=== PATIENT | female | born 1970 | race Caucasian/White ===

== ENCOUNTER 2018-01-12 16:48 | Emergency (ER) | payer MEDICARE, SELFPAY ==
[2018-01-12 16:52] VITALS: BP 134/96; PULSE 94; RESP 18; TEMP 36.9; O2SAT 96
[2018-01-12 17:11] LABS: Bilirubin Negative (Negative); Blood Negative (Negative); Clarity Clear; Glucose Negative (Negative); Ketones Trace mg/dL (Negative); Leukocyte Esterase Small (Negative); Nitrite Negative (Negative); Specific Gravity 1.025 (1.005-1.025); Urobilinogen 0.2 EU/dL (Up TO 0.2)
[2018-01-12 17:17] LABS: Epithelial Cells Rare HPF (Negative); Other Cells Negative (Negative); RBC Negative (0-2)
[2018-01-12 17:18] LABS: Bacteria Few HPF (Negative); C & S Indicated? No; Casts Negative LPF (Negative); Crystals Negative HPF (Negative); Mucus Trace (Negative)
--- NOTE | 2018-01-12 17:18 | W.ED.GENAD ---
Discharge Plan Disposition Patient Disposition: HOME Condition: Stable Discharge Details Chief Complaint: Urinary Clinical Impression: UTI (urinary tract infection) Primary Care Provider: Lalo Schmidt ED Provider: Iftikhar Tatum Home Meds and New Rx's Prescriptions: New ciprofloxacin HCl 500 mg tablet 500 mg PO BID Qty: 14 RF: 0 phenazopyridine [AZO Standard Maximum Strength] 97.5 mg tablet 97.5 mg PO TID PRN (Reason: dysuria) Qty: 10 RF: 0 Continue acetaminophen-codeine 1 EACH tablet 1 tab-cap PO DAILY PRN RF: 0 ibuprofen 600 MG tablet 600 mg PO TID Qty: 270 RF: 4 duloxetine [Cymbalta] 30 MG capsule,delayed release(DR/EC) 20 mg PO BID Qty: 90 RF: 4 sumatriptan succinate [Imitrex] 50 MG tablet 50 mg PO PRN DICKINSON RF: 0 melatonin-pyridoxine HCl (B6) 1 EACH tablet 1 ea PO HS PRNRF: 0 cyclobenzaprine 10 MG tablet 10 mg PO BID RF: 0 gabapentin 100 MG capsule 100 mg PO PRN RF: 0 metronidazole 500 MG tablet 500 mg PO BID Qty: 14 RF: 0 clindamycin phosphate 2 % cream 1 appful VG DAILY Qty: 40 RF: 0 Discharge Instructions Instructions: Urinary Tract Infection in Women (ED) Discharge Data Discharge Physician: Iftikhar Tatum Medical Decision Making 47 yo female comes in with burning on urination and right lower back pain since Sunday. Denies fevers, abdominal pain or vomit. She states she thinks she has a uti so came here today. Has no cva tenderness on exam and no abdominal tenderness. Symptoms seem consistent with uti, will obtain ua. Ua positive for leukocytes and has bacteria. Given symptoms will start abx for uti and advised f/u with pcp or here if not improving Differential Diagnosis uti, vaginitis, pyelo HPI General Mode of arrival: ambulatory. Date/Time Provider Initiated Documentation: 01/12/18 16:49. Limitations to Documentation: no limitations. Information obtained by: patient. History of Present Illness 47 year old F presents to the emergency department with the chief complaint of dysuria, described as moderate, with intensity rated at 4. Quality is described as burning, Patient reports no radiation. Patient started experiencing this day(s) (3) and it has been constant. No relieving factors improve symptom(s), No exacerbating factors reported . Patient notes no other symptoms.. Patient did receive the following treatments prior to arrival, none Related Data Home Medications Medication Instructions Recorded Confirmed acetaminophen-codeine 1 tab-cap PO DAILY PRN tab-cap 04/30/13 01/12/18 duloxetine [Cymbalta] 20 mg PO BID #90 tab-cap 04/30/13 01/12/18 ibuprofen 600 mg PO TID #270 tab-cap 04/30/13 01/12/18 sumatriptan succinate [Imitrex] 50 mg PO PRN DICKINSON tab-cap 06/23/13 01/12/18 melatonin-pyridoxine HCl (B6) 1 ea PO HS PRN 08/05/14 01/12/18 cyclobenzaprine 10 mg PO BID tab-cap 03/01/16 01/12/18 gabapentin 100 mg PO PRN 10/02/17 01/12/18 metronidazole 500 mg PO BID #14 tab-cap 10/02/17 clindamycin 2 % vaginal cream 1 appful VG DAILY #40 gm 12/20/17 01/12/18 ciprofloxacin HCl 500 mg PO BID #14 tab 01/12/18 phenazopyridine [AZO Standard 97.5 mg PO TID PRN #10 tab 01/12/18 Maximum Strength] Previous Rx's Medication Instructions Recorded metronidazole 500 mg PO BID #14 tab-cap 10/02/17 clindamycin 2 % vaginal cream 1 appful VG DAILY #40 gm 12/20/17 ciprofloxacin HCl 500 mg PO BID #14 tab 01/12/18 phenazopyridine [AZO Standard 97.5 mg PO TID PRN #10 tab 01/12/18 Maximum Strength] Allergies Allergy/AdvReac Type Severity Reaction Status Date / Time No Known Allergies Allergy Unverified 01/12/18 17:06 General Stated Complaint: Urinary JAVY: 3 Review of Systems Review of Systems All systems reviewed & are unremarkable except as noted in HPI and below Constitutional Denies chills, Denies fever(s) and Denies weakness Eyes Denies loss of vision ENT Denies change in voice Cardiovascular Denies chest pain and Denies dyspnea Respiratory Denies dyspnea Gastrointestinal Denies abdominal pain, Denies nausea and Denies vomiting Musculoskeletal Denies joint swelling Integumentary/Breasts Denies rash Neurologic Denies loss of vision and Denies weakness Psychiatric Denies depression Endocrine Denies cold intolerance and Denies heat intolerance Allergic/Immunologic Denies urticaria PFSH Family History Mother Neoplasm Father Essential hypertension Sister No problems noted. Brother Essential hypertension Hyperlipidemia Grandfather No problems noted. Grandfather No problems noted. Grandmother No problems noted. Grandmother Neoplasm Cerebrovascular accident Sister No problems noted. FAMILY HISTORY Diabetes Essential hypertension Son No problems noted. Daughter No problems noted. Social History current occupational status: disabled pets and animals: Yes pets and animals: dog(s) Smoking/Tobacco Use Status: Current every day second hand exposure: No alcohol intake: never substance use type: does not use special kerrie needs: No Surgical History EPIDURAL KNEE REPAIR Ligation of fallopian tube Exam Const General: no acute distress Orientation: alert HENMT Head: normal to inspection Ears: external ears normal General nose exam: external nose normal Mouth: moist mucous membranes Eyes General: appearance normal, both eyes and all related structures Neck Neck: normal visual inspection Resp Effort & Inspection: normal respiratory effort and able to speak in complete sentences Cardio Rate: regular rate Skin General skin exam: no rashes or lesions noted Neuro General: alert and oriented x3 Extrem General: normal to inspection Psych Mental Status: mental status grossly normal Course Vital Signs Temperature 36.9 C 01/12/18 16:52 Pulse 94 H 01/12/18 16:52 Respiratory Rate 18 01/12/18 16:52 Blood Pressure 134/96 H 01/12/18 16:52 Pulse Oximetry 96 01/12/18 16:52 Temperature 36.9 C 01/12/18 16:52 Temperature Source Skin 01/12/18 16:52 Pulse 94 H 01/12/18 16:52 Respiratory Rate 18 01/12/18 16:52 Respiratory Effort 01/12/18 16:54 Blood Pressure 134/96 H 01/12/18 16:52 Blood Pressure Position Sitting 01/12/18 16:52 Pulse Oximetry 96 01/12/18 16:52 Pain Level 5 01/12/18 16:52 Lab/Test Results Lab/Test Results: Laboratory Tests Range/Units 01/12/18 17:00 Urine Color (Yellow) Yellow Urine Clarity Clear Urine pH (5-8) 6.0 Ur Specific [place] (1.005-1.025) 1.025 Urine Protein (Negative) mg/dL Negative Urine Ketones (Negative) mg/dL Trace H Urine Blood (Negative) Negative Urine Nitrite (Negative) Negative Urine Bilirubin (Negative) Negative Urine Urobilinogen (Up TO 0.2) EU/dL 0.2 Ur Leukocyte Esterase (Negative) Small H Urine Glucose (Negative) mg/dL Negative POC- Test(urine) Negative
[2018-01-12] MEDS: Ciprofloxacin 500 MG TAB PO (18:25)
[2018-01-12] MEDS: Ibuprofen 600 MG TAB PO (18:25)
[2018-01-12] MEDS: Phenazopyridine 200 MG TAB PO (18:25)
== END 2018-01-12 18:30 | disposition home or self-care (01) ==
PROVIDERS: Emergency Provider Emergency Medicine; PCP Family Medicine
DX: N39.0 Urinary tract infection, site not specified (principal)
CPT/HCPCS: 81025; 99283; 81003; 81015; 87086

== ENCOUNTER 2018-03-01 14:06 | Outpatient (REF) | payer MEDICARE, SELFPAY | END 2018-03-01 14:26 | LOC: LBN 14:06 | PROVIDERS: PCP Family Medicine; Visit Provider Nurse Practitioner Family | DX: N30.90 Cystitis, unspecified without hematuria (principal) | CPT/HCPCS: 87086 ==

== ENCOUNTER 2018-08-27 21:45 | Outpatient (REF) | payer MEDICARE, SELFPAY | END 2018-08-27 22:05 | LOC: LBN 21:45 | PROVIDERS: PCP Family Medicine | DX: N89.8 Other specified noninflammatory disorders of vagina (principal) | CPT/HCPCS: 87480; 87510; 87660 ==

== ENCOUNTER 2018-10-23 13:18 | Outpatient (REF) | payer MEDICARE, SELFPAY | END 2018-10-23 13:38 | LOC: LBN 13:18 | PROVIDERS: PCP Family Medicine; Visit Provider Family Medicine | DX: N94.9 Unspecified condition associated with female genital organs and menstrual cycle (principal) | CPT/HCPCS: 87480; 87510; 87660 ==

== ENCOUNTER 2018-11-13 00:58 | Outpatient (CLI) | payer MEDICARE, SELFPAY ==
--- NOTE | 2018-11-13 13:45 | DI.MAMMO_ITS ---
SYMPTOMS/DIAGNOSIS: SCREENING, Z12.31 MAMMOGRAM: Mammograms were interpreted according to the usual protocol including computer analysis with CAD system, tomosynthesis and C view imaging. The breasts are of moderate density with fairly symmetrical distribution of fibroglandular tissue. No dominant mass or clumped microcalcification identified in either breast. Current examination is compared with the previous examination of September 2016 and there has been no gross interval change in appearance in comparison with the previous study. CONCLUSION: No specific evidence of malignancy at this time. Routine screening examinations are suggested at yearly intervals in this age group according to the ACS/ACR guidelines. Category 1, breast density category B. MQSA ASSESSMENT OF FINDINGS: Negative. Category 1. Patient will receive a letter notifying them of these results. BI-RADS category B. There are scattered areas of fibroglandular density.
== END 2018-11-13 01:18 ==
PROVIDERS: PCP Family Medicine; Visit Provider Family Medicine
DX: Z12.31 Encounter for screening mammogram for malignant neoplasm of breast (principal)
CPT/HCPCS: 77063; 77067

== ENCOUNTER 2019-03-31 19:12 | Outpatient (REF) | payer MEDICARE, SELFPAY | END 2019-03-31 19:32 | LOC: LBN 19:12 | PROVIDERS: PCP Family Medicine; Visit Provider Family Medicine | DX: N76.0 Acute vaginitis (principal); B96.89 Other specified bacterial agents as the cause of diseases classified elsewhere | CPT/HCPCS: 87480; 87510; 87660 ==

== ENCOUNTER 2019-04-23 01:24 | Outpatient (CLI) | payer MEDICARE, SELFPAY ==
--- NOTE | 2019-04-23 10:49 | DI.US_ITS ---
EXAM: US PELVIS TRANSVAGINAL CLINICAL HISTORY: menorrhagia N92.0 TECHNIQUE: Ultrasound performed using standard protocol. COMPARISON: No exams were available for comparison FINDINGS: The uterus is retroverted and measures 8.8 x 5.8 x 5.8 cm. No fibroids are identified. The endometr ium measures 15 millimeters in thickness. Endometrium appears heterogeneous which could indicate hyp erplasia or polyps. A few small cysts are noted on the left ovary. The right ovary is unremarkable. There is a small amount of fluid in the cul-de-sac. There is no evidence of hydronephrosis. The bl adder is unremarkable. IMPRESSION: Thickened heterogeneous endometrium. Small cysts of the left ovary.
== END 2019-04-23 01:44 ==
PROVIDERS: PCP Family Medicine; Visit Provider Nurse Practitioner Women's Health
DX: N92.0 Excessive and frequent menstruation with regular cycle (principal); N83.292 Other ovarian cyst, left side; R93.89 Abnormal findings on diagnostic imaging of other specified body structures
CPT/HCPCS: 76830; 76856

== ENCOUNTER 2019-05-07 12:35 | Outpatient (REF) | payer MEDICARE, SELFPAY | END 2019-05-07 12:55 | LOC: LBN 12:35 | PROVIDERS: PCP Family Medicine; Visit Provider Nurse Practitioner Women's Health | DX: N76.0 Acute vaginitis (principal) | CPT/HCPCS: 87480; 87510; 87660 ==

== ENCOUNTER 2019-05-12 08:38 | Outpatient (CLI) | payer MEDICARE, SELFPAY ==
[2019-05-12 09:15] LABS: HCT 40.5 % (36.0-46.0); HGB 13.8 g/dL (12.0-15.5); Mean Corp. HGB Concentration 34.1 g/dL (32.0-36.0); Mean Corpuscular Hemoglobin 29.2 pg (27.0-33.0); Mean Corpuscular Volume 85.8 fL (80-95); Mean Platelet Volume 10.2 fL (8.0-11.0); Platelet Count 305 x1000/uL (130-400); RBC 4.72 m/cumm (4.00-5.20); White Blood Cell Count 7.18 k/cumm (4.4-10.8)
[2019-05-12 09:55] LABS: ALT 32 U/L (14-59); AST 24 U/L (15-37); Albumin 3.7 g/dL (3.4-5.0); Alkaline Phosphatase 92 U/L (46-116); Anion Gap 8.4 mmol/L (3-11); BUN 12 mg/dL (7-18); Bilirubin, Total 0.4 mg/dL (0.2-1.0); CO2 29.6 mmol/L (21.0-32.0); CREATININE 0.77 mg/dL (0.55-1.02); Chloride 104 mmol/L (98-107); Glucose 94 mg/dL (74-106); Potassium 4.2 mmol/L (3.5-5.1); Sodium 142 mmol/L (136-145); Total Protein 6.7 g/dL (6.4-8.2)
[2019-05-13 14:48] LABS: HCG Qual (Serum) Negative
== END 2019-05-12 08:58 ==
PROVIDERS: PCP Family Medicine; Visit Provider Obstetrics & Gynecology Gynecology
DX: N92.0 Excessive and frequent menstruation with regular cycle (principal); F32.9 Major depressive disorder, single episode, unspecified; K21.9 Gastro-esophageal reflux disease without esophagitis; Z86.14 Personal history of Methicillin resistant Staphylococcus aureus infection; Z01.818 Encounter for other preprocedural examination; Z01.812 Encounter for preprocedural laboratory examination
CPT/HCPCS: 80053; 85027; 86850; 86900; 86901; 84703

== ENCOUNTER 2019-05-14 06:46 | Day surgery (SDC) | payer MEDICARE, SELFPAY ==
[2019-05-14 07:16] VITALS: BP 129/86; PULSE 86; RESP 16; TEMP 36.4; O2SAT 96
[2019-05-14] MEDS: Lactated Ringers 1,000 ML 125 ML IV (07:30)
--- NOTE | 2019-05-14 09:35 | ENDOMET_PTH ---
PATIENT: Jennifer Rowland LOC: [facility] U#:[id number] AGE/SX: 48/F ROOM: RE05/14/[address]: Marsha Gillette : 1970 BED: DIS: 05/14/2019 SPEC #: [id number] RECD: 05/14/19 12:53 STATUS: RAFAEL REQ #: [id number] JOSE FRANCISCO: 05/14/19 09:[address]: Marsha Gillette DEPT: Surgical Specimen RECD BY: Nayeli Bauer ENTERED: 05/14/19 12:54 SP TYPE: Endomet OTHR DR: Lalo Schmidt MD Tissues: 1 - ENDOMETRIUM BX/ZARINA Procedures: GROSS AND MICRO LEVEL 4 Comments: [id number]
[2019-05-14] MEDS: Silver Nitrate Stick 1 EACH (09:37)
[2019-05-14] MEDS: Bupivacaine 0.25% Pres-Free 30 ML VIAL (09:37)
--- NOTE | 2019-05-14 09:53 | W.PM.DSUDISC ---
Discharge Plan Disposition Patient Disposition: HOME Condition: Good Discharge Details Reason For Visit: MENORRAHAGIA / IUD PLACEMENT Attending Provider: Marsha Gillette Primary Care Provider: Lalo Schmidt Home Meds and New Rx's Prescriptions: No Action misoprostol 100 mcg tablet 200 mcg vaginal ONCE Qty: 2 RF: 0 oxycodone-acetaminophen [Endocet] 5-325 mg tablet 1 tab PO Q6H MDD 4 PRN (Reason: pain) Qty: 5 RF: 0 acetaminophen-codeine 1 EACH tablet 1 tab-cap PO DAILY PRN RF: 0 ibuprofen 600 MG tablet 600 mg PO TID Qty: 270 RF: 4 duloxetine [Cymbalta] 30 MG capsule,delayed release(DR/EC) 20 mg PO BID Qty: 90 RF: 4 sumatriptan succinate [Imitrex] 50 MG tablet 50 mg PO PRN DICKINSON RF: 0 melatonin-pyridoxine HCl (B6) 1 EACH tablet 1 ea PO HS PRNRF: 0 cyclobenzaprine 10 MG tablet 10 mg PO BID RF: 0 gabapentin 100 MG capsule 100 mg PO PRN RF: 0 Discharge Instructions Stand Alone Forms: [facility] ([facility]) Activity:: Activity as Tolerated Diet:: As Tolerated Discharge Orders Discharge Orders: Discharge Order (Routine); Ordered 05/14/19 Ordered By: Marsha Gillette Discharge Data Discharge Date/Time-TO BE ENTERED AT DEPARTURE: 05/14/19 11:16 DS: Diagnosis Discharge Diagnosis (1) Abnormal uterine bleeding (AUB): Status: Acute (2) Encounter for insertion of mirena IUD: Status: Acute (3) History of D&C: Start date: 05/14/19 Status: Acute
[2019-05-14 10:15] VITALS: BP 128/84; PULSE 85; RESP 18; TEMP 36; O2SAT 98
[2019-05-14] MEDS: oxyCODONE 5 mg/Acetaminophen 325 mg TAB PO (10:22)
--- NOTE | 2019-05-22 11:19 | W.PM.OP ---
Date of service: 05/14/19 Time of Service: 14:10 Operative Note Operative Note DATE OF PROCEDURE: 05/14/19 PRE-OP DIAGNOSIS: Abnormal uterine bleeding, previously unsuccessful attempt at endometrial biopsy POST-OP DIAGNOSIS: same PROCEDURE: Diagnostic hysteroscopy, cervical dilatation and suction curettage of uterine lining, placement of Mirena IUD SURGEON: Marsha Gillette ANESTHESIA: MAC ESTIMATED BLOOD LOSS: 10 PATHOLOGY: other (Uterine curettings) COMPLICATIONS: None Patient was transported to: same day Patient's condition: stable Indications: Pt is a 47yo , 48 y.o. female with history of menorrhagia. An attempt at endometrial biopsy in the office was unsuccessful secondary to patient discomfort. Findings: Thickened lining, polypoid in appearance. No discrete intracavity filling defects Both tubal ostia visualized. Satisfactory retrieval of endometrial lining Procedure Description: Patient was taken to the operating room where she placed in the dorsal supine position and monitored anesthesia care was administered without difficulty. She was then placed in the dorsal lithotomy position in yellowfin stirrups prepped and draped in the usual sterile fashion. Surgical timeout was performed. SCDs were in place and no antibiotics were required. A bivalve speculum was placed in the vagina the anterior lip of the cervix was infiltrated with 1 cc of 25 % Marcaine without epinephrine and the anterior lip of the cervix was grasped with single-tooth tenaculum. A paracervical block was performed at the 4 and 8:00 positions respectively. The cervix was then sequentially dilated to accommodate a diagnostic hysteroscope which was introduced into the uterine cavity under direct visualization with normal saline as the distention medium. After careful inspection the hysteroscope was removed and a 7 mm curved suction cannula was introduced into the uterine cavity and all 4 quadrants the uterine cavity were suction curetted and adequate specimen obtained. A repeat inspection of the uterine cavity was performed showed satisfactory curetting no further curettage was performed. Hysteroscope was removed a Mirena IUD was placed into the uterine cavity to a depth of 7 cm successfully deployed and the strings trimmed to 2.5 cm. Instruments were removed and the patient's vagina tenaculum site was noted be hemostatic at the completion of the procedure. All sponge lap and needle counts are correct x2
== END 2019-05-14 11:16 | disposition home or self-care (01) ==
PROVIDERS: PCP Family Medicine; Visit Provider Obstetrics & Gynecology Gynecology
PROC: 0UDB8ZZ Extraction of Endometrium, Via Natural or Artificial Opening Endoscopic (ICD-10-PCS; CPT 58558; principal; 2019-05-14 08:30)
PROC: (CPT 58558; 2019-05-14 08:30)
DX: N93.9 Abnormal uterine and vaginal bleeding, unspecified (principal); Z30.430 Encounter for insertion of intrauterine contraceptive device; N85.02 Endometrial intraepithelial neoplasia [EIN]; N85.8 Other specified noninflammatory disorders of uterus
CPT/HCPCS: 58558; 58300; 88305; J0131; J1100; J1885; J2001; J2250; J2405; J3010

== ENCOUNTER 2019-07-17 09:12 | Emergency (ER) | payer MEDICARE, SELFPAY ==
--- NOTE | 2019-07-17 09:15 | DI.RAD_ITS ---
EXAM: XR KNEE RT 4V+ CLINICAL HISTORY: fall/twist/pop TECHNIQUE: COMPARISON: No exams were available for comparison FINDINGS: Four views were obtained. There is an apparent knee joint effusion and there is soft tissue swelling of the medial aspect of the knee. No acute fracture seen. IMPRESSION:
[2019-07-17 09:17] VITALS: BP 131/77; PULSE 95; RESP 16; TEMP 36; O2SAT 94
--- NOTE | 2019-07-17 09:47 | ED.GENADUL_ITS ---
Discharge Plan Disposition Patient Disposition: HOME Condition: Stable Discharge Details Chief Complaint: Orthopedic Clinical Impression: Effusion of knee Primary Care Provider: Lalo Schmidt ED Provider: Juvenal Han Home Meds and New Rx's Prescriptions: No Action acetaminophen-codeine 1 EACH tablet 1 tab-cap PO DAILY PRN RF: 0 ibuprofen 600 MG tablet 600 mg PO TID Qty: 270 RF: 4 duloxetine [Cymbalta] 30 MG capsule,delayed release(DR/EC) 20 mg PO BID Qty: 90 RF: 4 sumatriptan succinate [Imitrex] 50 MG tablet 50 mg PO PRN DICKINSON RF: 0 melatonin-pyridoxine HCl (B6) 1 EACH tablet 1 ea PO HS PRNRF: 0 cyclobenzaprine 10 MG tablet 10 mg PO BID RF: 0 Discharge Instructions Instructions: Knee Pain (ED) Additional Instructions: At this time your x-ray reveals a knee effusion however your examination is concerning for internal derangement and likely outpatient MRI will be needed. I contacted our orthopedic provider, Dr. Salomon, he will see you in his office on the at 2 PM. Qvoa-lvo-ckycvnx medications as directed for discomfort. Rest, elevate, cool and/or warm compresses every 2 hours for 20 minutes. Wear knee immobilizer and use crutches until reevaluation with orthopedics but you may take the brace off at your convenience for readjustment or gentle extension and/or flexion. Please watch for new or worsening symptoms and return to the ER for any concerns Referrals: Vince Salomon MD [ [facility] STAFF PHYSICIAN] - 07/22/19 2:00 pm Medical Decision Making 48-year-old female who has had a right knee surgery at the age of 13 presents after having had a twisting and fall injury. Examination reveals that she has neuro, vascular, tendon intact. Normal pedal pulses, normal capillary refill. Examination certainly concerning for internal derangement. Will obtain x-ray and then reassess. Patient came back from x-ray reports increased pain after movement, given a single Percocet orally. X-ray reveals joint effusion but no bony abnormality. Given her concerning evaluation, I have placed a call to orthopedics to help expedite outpatient care. MRI likely indicated for further evaluation and management of her injury. In the meantime we will place her into a long leg immobilizer and crutches. She did tolerate this well. We did discuss prescription for analgesia, she declines and will elect to take [id number] medications I was able to speak with Dr. Salomon, who is aware of the patient's visit and will be happy to see her in his office early next week. I will CC this note to him as well. Medical Records Medical records reviewed: Yes I reviewed the patient's medical records. Imaging Data Radiologic Study: Attestation: I personally reviewed and interpreted this imaging study as follows: Imaging: X-Ray Radiologist's impression: Apparent knee joint effusion and there is soft tissue swelling of the medial aspect of the knee. No acute fracture seen HPI General Mode of arrival: ambulatory . Date/Time Provider Initiated Documentation: 07/17/19 09:12 . Limitations to Documentation: no limitations . Information obtained by: patient . HPI Narrative: This is a 48-year-old female who reports that she had reconstructive surgery on her right knee when she was 13 years old has had no issues ever since. This morning around 630 while doing daily chores, she was carrying a bale of hay, slipped on ice, twisting her knee and then falling to the ground. She reports the pain is moderate at rest but severe with weightbearing. She denies any numbness, tingling, weakness or any other injury. She reports that she felt as though her lower extremity was bent outward and she was able to pop her knee back into place. She reports that she has been able to bear weight but as above this increases her pain in her knee feels unstable. She did take a Flexeril and Motrin for her discomfort and repor ts that this did help with her pain. Related Data Home Medications Medication Instructions Recorded Confirmed acetaminophen-codeine 1 tab-cap PO DAILY PRN tab-cap 04/30/13 07/17/19 duloxetine [Cymbalta] 20 mg PO BID #90 tab-cap 04/30/13 07/17/19 ibuprofen 600 mg PO TID #270 tab-cap 04/30/13 07/17/19 sumatriptan succinate [Imitrex] 50 mg PO PRN DICKINSON tab-cap 06/23/13 07/17/19 melatonin-pyridoxine HCl (B6) 1 ea PO HS PRN 08/05/14 07/17/19 cyclobenzaprine 10 mg PO BID tab-cap 03/01/16 07/17/19 Allergies Allergy/AdvReac Type Severity Reaction Status Date / Time No Known Allergies Allergy Verified 07/17/19 09:22 General Stated Complaint: Orthopedic JAVY: 3 Review of Systems Constitutional Constitutional: Denies headache(s) and Denies weakness ENT Ears, Nose, Mouth, and Throat: Denies headache(s) and Denies neck pain Cardiovascular Cardiovascular: Denies chest pain and Denies dyspnea Respiratory Respiratory: Denies dyspnea Gastrointestinal Gastrointestinal: Denies nausea and Denies vomiting Musculoskeletal Musculoskeletal: Denies back pain, Reports arthralgias, Reports joint swelling, Denies neck pain, Denies numbness and Denies tingling Integumentary/Breasts Skin/Breast: Denies rash Neurologic Neurologic: Denies headache(s), Denies numbness, Denies sensory deficit, Denies tingling, Denies paresthesias and Denies weakness [facility] Medical History Abnormal uterine bleeding (AUB) (Acute) Bacterial vaginitis (Chronic) Encounter for insertion of mirena IUD (Acute) Endometrial hyperplasia with atypia (Acute) 05/14/2019 D&C endometrial polyp with focal atypical hyperplasia otherwise disordered proliferative endometrium. 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 Brother Essential hypertension Hyperlipidemia Maternal Grandfather , 63 No problems noted. Paternal Grandfather , 55 No problems noted. Maternal Grandmother No problems noted. Paternal Grandmother , 60 Stroke Cancer Sister No problems noted. FAMILY HISTORY Diabetes Essential hypertension Son , 23 No problems noted. Daughter No problems noted. Sister No problems noted. Social History Smoking/Tobacco Use Status: Former Tobacco Use Quit Date: 07/24/18 Second Hand Exposure: No Alcohol Intake: never Drug use: Never Substance use type: does not use Caregiver/Support person: No Household members: spouse Housing: house Do you need help understanding health information?: Rarely Pets and animals: Yes Pets and animals: dog(s) Sexually active: Yes Do you think of yourself as: straight/heterosexual Current gender identity: female What is your relationship status?: How often do you talk on the phone with friends or family?: twice per week How often do you get together with friends or relatives?: once per week How often do you attend jew or anabaptism services?: decline to answer Do you belong to any clubs or organized social groups?: no Panel score (0-1 are the most socially isolated patients): 2 What type of physical activity do you participate in: none Re/Quaker: No preference Special re needs: No Seatbelt use: always Drive intox or ride w/intox wagon driver: No Do you feel safe at home: Yes Do you feel safe in your relationship?: Yes Female Reproductive History Menstrual control method: permanent sterilization (tubal) and condoms History History 3 Para 2 Hx # Term Pregnancies Multiple births Hx # Pregnancies Ectopic pregnancies AB induced Hx Number of Living Children 1 AB spontaneous Exam Const General: cooperative, healthy appearing, comfortable and no acute distress Orientation: alert, awake and oriented x3 HENMT Head: normal to inspection, normocephalic and atraumatic Mouth: moist mucous membranes Eyes Conjunctivae: conjunctivae normal Neck Neck: normal visual inspection, trachea midline and supple Resp Effort & Inspection: normal respiratory effort and able to speak in complete sentences Cardio Rate: regular rate Rhythm: regular rhythm Skin General skin exam: no rashes or lesions noted Neuro General: patient alert, patient awake, moves all extremities and no focal motor deficits Sensory Exam: no sensory deficits noted Extrem General: capillary refill normal, no pedal edema and no calf tenderness Right lower extremity: normal capillary refill and knee Details: tenderness (Medial aspect), swelling (Medial aspect), abnormal ROM Details: held in an abnormal fashion (Patient has limited flexion secondary to discomfort) Details: in extension, pain with active ROM during and pain with passive ROM during, knee ligament exam abnormal Details: varus stress test normal Details: both pain and laxity noted and ecchymosis (Medial aspect); no cyanosis Psych Appearance: grossly normal Mental Status: mental status grossly normal Course Vital Signs Vital signs: Vital Signs Temperature 36 C L 07/17/19 09:17 Pulse 95 H 07/17/19 09:17 Respiratory Rate 16 07/17/19 09:17 Blood Pressure 131/77 07/17/19 09:17 Pulse Oximetry 94 L 07/17/19 09:17 Temperature 36 C L 07/17/19 09:17 Temperature Source Temporal Artery Scan 07/17/19 09:17 Pulse 95 H 07/17/19 09:17 Respiratory Rate 16 07/17/19 09:17 Respiratory Effort Non-Labored 07/17/19 09:21 Blood Pressure 131/77 07/17/19 09:17 Blood Pressure Position Supine 07/17/19 09:17 Pulse Oximetry 94 L 07/17/19 09:17 Oxygen Delivery Method Room Air 07/17/19 09:17 Oxygen Flow Rate 0 07/17/19 09:17 Pain Level 5 07/17/19 09:17
[2019-07-17] MEDS: oxyCODONE 5 mg/Acetaminophen 325 mg TAB 1 TAB PO (10:01)
--- NOTE | 2019-07-17 10:02 | NUR.NOTE ---
Nursing Note: Initial Percocet tablet pulled was dropped on the ground and wasted with Neeru (RN). Second tablet pulled to administer to patient.
--- NOTE | 2019-07-17 10:36 | NUR.NOTE ---
Nursing Note: Knee brace applied to right knee. Crutches provided. Instructions with teach back performed prior to DC.
== END 2019-07-17 10:40 | disposition home or self-care (01) ==
PROVIDERS: Emergency Provider Physician Assistant; PCP Family Medicine
DX: M25.461 Effusion, right knee (principal); W00.0XXA Fall on same level due to ice and snow, initial encounter; X50.9XXA Other and unspecified overexertion or strenuous movements or postures, initial encounter
CPT/HCPCS: 29505; 99284; 73564; E0114; L1810

== ENCOUNTER → 2019-07-22 13:54 | Outpatient (BNVA) | payer MEDICARE, SELFPAY | PROVIDERS: PCP Family Medicine; Referring Provider Family Medicine; Visit Provider Student in an Organized Health Care Education/Training Program | DX: S83.511D Sprain of anterior cruciate ligament of right knee, subsequent encounter (principal); S83.411D Sprain of medial collateral ligament of right knee, subsequent encounter; W00.0XXD Fall on same level due to ice and snow, subsequent encounter; X50.9XXD Other and unspecified overexertion or strenuous movements or postures, subsequent encounter; M25.461 Effusion, right knee | CPT/HCPCS: 99204; 99215; L1820 ==

== ENCOUNTER 2019-07-29 01:57 | Outpatient (CLI) | payer MEDICARE, SELFPAY ==
--- NOTE | 2019-07-29 06:30 | DI.MRI_ITS ---
EXAM: MR LOWER JOINT RT WO CLINICAL HISTORY: right knee injury; MCL and ACL tear, INTERNAL DERANGEMENT, EFFUSION TECHNIQUE: Multiplanar multisequence MRI was performed. COMPARISON: XR KNEE RT 4V+ from 07/17/2019 FINDINGS: There is a moderate-sized joint effusion. There is a large amount of soft tissue edema. Fluid is seen around the medial collateral ligament which is disrupted at the femoral attachment. There is al so question of disruption of the medial patellar retinaculum. The patella appears normally situated. The patellar cartilage is intact. The anterior cruciate ligament is disrupted at the femoral attachment. The posterior cruciate ligame nt appears intact. The lateral collateral ligament complex appears intact. The extensor mechanism i s intact. There is a bucket-handle type tear of the lateral meniscus with the posterior horn flipped anteriorly , anterior to the anterior horn. The medial meniscus is somewhat diminutive and mildly peripherally displaced which could be secondary to previous surgery and/or degenerative changes. No medial meniscal tear is seen. There are bone contusions of the posterior aspect of the lateral tibial plateau and adjacent proximal fibula. IMPRESSION: Complete tears of the ACL and MCL. Bucket-handle type tear of the lateral meniscus with anteriorly flipped fragment. DATA REPOSITORY:
== END 2019-07-29 02:17 ==
PROVIDERS: PCP Family Medicine; Visit Provider Student in an Organized Health Care Education/Training Program
DX: S83.411A Sprain of medial collateral ligament of right knee, initial encounter (principal); S83.511A Sprain of anterior cruciate ligament of right knee, initial encounter; S83.251A Bucket-handle tear of lateral meniscus, current injury, right knee, initial encounter; M25.461 Effusion, right knee
CPT/HCPCS: 73721

== ENCOUNTER → 2019-08-05 14:01 | Outpatient (BNVA) | payer MEDICARE, SELFPAY | PROVIDERS: PCP Family Medicine; Referring Provider Family Medicine; Visit Provider Student in an Organized Health Care Education/Training Program | DX: S83.411D Sprain of medial collateral ligament of right knee, subsequent encounter (principal); S83.511D Sprain of anterior cruciate ligament of right knee, subsequent encounter; S83.251D Bucket-handle tear of lateral meniscus, current injury, right knee, subsequent encounter; X50.9XXD Other and unspecified overexertion or strenuous movements or postures, subsequent encounter | CPT/HCPCS: 99214; L1833 ==

== ENCOUNTER → 2019-08-26 13:00 | Outpatient (BNVA) | payer MEDICARE, SELFPAY | PROVIDERS: PCP Family Medicine; Referring Provider Family Medicine; Visit Provider Student in an Organized Health Care Education/Training Program | DX: S83.411A Sprain of medial collateral ligament of right knee, initial encounter (principal); S83.511A Sprain of anterior cruciate ligament of right knee, initial encounter; S83.271A Complex tear of lateral meniscus, current injury, right knee, initial encounter; X58.XXXA Exposure to other specified factors, initial encounter | CPT/HCPCS: 99214 ==

== ENCOUNTER 2019-09-24 08:27 | Outpatient (CLI) | payer MEDICARE, MEDICAID, SELFPAY ==
--- NOTE | 2019-09-24 14:00 | DI.RAD_ITS ---
EXAM: XR STANDING ALIGNMENT and XR knee RT 1 V CLINICAL HISTORY: MCL tear. TECHNIQUE: 2D digital imaging was performed. COMPARISON: CR XR KNEE RT 1V from 09/24/2019 FINDINGS: In the right knee, there is mild narrowing of the lateral femoral tibial joint space. Left knee is u nremarkable. The hips and ankles are well maintained. Right lower extremity measures 85.2 cm. The left lower extremity measures 86.1 cm. IMPRESSION: DATA REPOSITORY: RADIATION DOSE DELIVERED:
== END 2019-09-24 08:47 ==
PROVIDERS: PCP Family Medicine; Visit Provider Physician Assistant
DX: M21.70 Unequal limb length (acquired), unspecified site; S83.411D Sprain of medial collateral ligament of right knee, subsequent encounter; S83.511D Sprain of anterior cruciate ligament of right knee, subsequent encounter; S83.271D Complex tear of lateral meniscus, current injury, right knee, subsequent encounter; X58.XXXD Exposure to other specified factors, subsequent encounter
CPT/HCPCS: 99214; 73560; 77073

== ENCOUNTER 2020-03-22 20:39 | Outpatient (REF) | payer MEDICARE, MEDICAID, SELFPAY | END 2020-03-22 20:59 | LOC: NCHCN 20:39 | PROVIDERS: PCP Family Medicine; Visit Provider Nurse Practitioner Family | DX: N76.0 Acute vaginitis (principal) | CPT/HCPCS: 87480; 87510; 87660 ==

== ENCOUNTER 2020-09-22 17:49 | Outpatient (REF) | payer MEDICARE, MEDICAID, SELFPAY ==
[2020-09-24 12:55] LABS: COVID-19 RT-PCR UVMMC Result Negative (Negative)
== END 2020-09-22 17:50 | disposition home or self-care (01) ==
LOC: LBN 17:49
PROVIDERS: PCP Nurse Practitioner Family; Visit Provider Family Medicine
DX: Z20.822 Contact with and (suspected) exposure to COVID-19 (principal)
CPT/HCPCS: U0003; U0005

== ENCOUNTER 2020-12-10 12:12 | Outpatient (REF) | payer MEDICARE, SELFPAY ==
--- NOTE | 2020-12-10 11:00 | ENDOMET_PTH ---
PATIENT: Jennifer Rowland LOC: [facility] U#:[id number] AGE/SX: 50/F ROOM: RE12/10/[address]: Marsha Gillette : 1970 BED: DIS: 12/10/2020 SPEC #: [id number] RECD: 12/10/20 13:02 STATUS: RAFAEL JAMES #: [id number] JOSE FRANCISCO: 12/10/20 11:[address]: Marsha Gillette DEPT: Surgical Specimen RECD BY: Nayeli Bauer ENTERED: 12/10/20 13:02 SP TYPE: Endomet OTHR DR: Fabrizio Person, TELECOMMUNICATION ENGINEER Tissues: 1 - ENDOMETRIUM BX/ZARINA Procedures: GROSS AND MICRO LEVEL 4 Comments: [id number]
== END 2020-12-10 12:13 | disposition home or self-care (01) ==
LOC: LBN 12:12
PROVIDERS: PCP Nurse Practitioner Family; Visit Provider Obstetrics & Gynecology Gynecology
DX: N85.01 Benign endometrial hyperplasia (principal); T38.895A Adverse effect of other hormones and synthetic substitutes, initial encounter
CPT/HCPCS: 88305

== ENCOUNTER 2020-12-17 03:03 | Outpatient (CLI) | payer MEDICARE, MEDICAID, SELFPAY ==
[2020-12-17 11:05] LABS: HCT 42.6 % (36.0-46.0); HGB 14.6 g/dL (11.2-15.7); MCH 30.8 pg (27.0-33.0); MCHC 34.3 % (32.0-36.0); MCV 89.9 fL (80-95); Platelet Count 270 10^3/uL (130-400); RBC 4.74 10^6/uL (3.93-5.22); RDW 12.5 % (11.7-14.6); RDW-SD 40.9 fL; WBC 6.99 10^3/uL (4.4-10.8)
[2020-12-17 11:27] LABS: Hemoglobin A1C 5.5 % (<5.7)
[2020-12-17 12:22] LABS: Calculated LDL 158 mg/dL (<100); Cholesterol 246 mg/dL (<200); Glucose 117 mg/dL (74-106); HDL Cholesterol 49 mg/dL (40-60); Triglyceride 195 mg/dL (<150)
== END 2020-12-17 03:04 | disposition home or self-care (01) ==
LOC: LBO 03:10
PROVIDERS: PCP Nurse Practitioner Family; Visit Provider Obstetrics & Gynecology Gynecology
DX: N85.02 Endometrial intraepithelial neoplasia [EIN]; N93.9 Abnormal uterine and vaginal bleeding, unspecified; E66.9 Obesity, unspecified; G89.29 Other chronic pain; M54.5 Low back pain
CPT/HCPCS: 36415; 80061; 82947; 85027; 83036

== ENCOUNTER 2021-03-03 12:43 | Outpatient (REF) | payer MEDICARE, MEDICAID, SELFPAY ==
[2021-03-06 08:41] LABS: COVID-19 RT-PCR UVMMC Result Positive (Negative)
== END 2021-03-03 12:44 | disposition home or self-care (01) ==
LOC: LBN 12:43
PROVIDERS: PCP Nurse Practitioner Family; Visit Provider Physician Assistant
DX: Z20.822 Contact with and (suspected) exposure to COVID-19 (principal)
CPT/HCPCS: U0003

== ENCOUNTER 2021-11-10 03:42 | Outpatient (CLI) | payer MEDICARE, MEDICAID, SELFPAY ==
[2021-11-10 12:55] LABS: Calculated LDL 156 mg/dL (<100); Cholesterol 218 mg/dL (<200); HDL Cholesterol 50 mg/dL (40-60); Triglyceride 62 mg/dL (<150)
== END 2021-11-10 03:43 | disposition home or self-care (01) ==
LOC: LOS 03:42
PROVIDERS: PCP Nurse Practitioner Family; Visit Provider Nurse Practitioner Family
DX: E78.5 Hyperlipidemia, unspecified (principal)
CPT/HCPCS: 36415; 80061

== ENCOUNTER 2022-02-14 12:15 | Outpatient (REF) | payer MEDICARE, SELFPAY ==
--- NOTE | 2022-02-14 11:00 | ENDOMET_PTH ---
PATIENT: Jennifer Rowland LOC: [facility] #:[id number] AGE/SX: 51/F ROOM: RE02/14/[address]: Marsha Gillette : 1970 BED: DIS: 02/14/2022 SPEC #: [id number] RECD: 02/14/22 12:49 STATUS: RAFAEL RERoxanne #: [id number] JOSE FRANCISCO: 02/14/22 11:[address]: Marsha Gillette DEPT: Surgical Specimen RECD BY: Nayeli Bauer ENTERED: 02/14/22 12:50 SP TYPE: Endomet OTHR DR: Fabrizio Person, SIERRA Tissues: 1 - ENDOMETRIUM BX/JOSÉ MIGUELETTE Procedures: GROSS AND MICRO LEVEL 4 Comments: [id number]
--- NOTE | 2022-02-14 11:00 | PAPFT_PTH ---
PATIENT: Jennifer Rowland LOC: [facility] U#:[id number] AGE/SX: 51/F ROOM: RE02/14/[address]: Marsha Gillette : 1970 BED: DIS: 02/14/2022 SPEC #: [id number] RECD: 02/14/22 13:05 STATUS: ONIELMelissa RERoxanne #: [id number] JOSE FRANCISCO: 02/14/22 11:[address]: Marsha Gillette DEPT: [facility] Cytology RECD BY: Nayeli Bauer ENTERED: 02/14/22 13:05 SP TYPE: PAPFT MARGARITO DR: Fabrizio Person, SIERRA Tissues: 1 - CX/ENDOCX FOR PAP SMEARS Procedures: PAP THIN PREP/UVM Screening HPV DNA PROBE Comments: [id number]
== END 2022-02-14 12:16 | disposition home or self-care (01) ==
LOC: LBN 12:15
PROVIDERS: PCP Nurse Practitioner Family; Visit Provider Obstetrics & Gynecology Gynecology
DX: N93.8 Other specified abnormal uterine and vaginal bleeding; N85.8 Other specified noninflammatory disorders of uterus; Z11.51 Encounter for screening for human papillomavirus (HPV); R87.610 Atypical squamous cells of undetermined significance on cytologic smear of cervix (ASC-US)
CPT/HCPCS: 88142; 88305; 87624

== ENCOUNTER 2022-05-12 01:15 | Outpatient (CLI) | payer MEDICARE, SELFPAY ==
[2022-05-12 08:57] LABS: Calculated LDL 185 mg/dL (<100); Cholesterol 262 mg/dL (<200); HDL Cholesterol 66 mg/dL (40-60); Triglyceride 57 mg/dL (<150)
== END 2022-05-12 01:16 | disposition home or self-care (01) ==
PROVIDERS: PCP Nurse Practitioner Family; Visit Provider Nurse Practitioner Family
DX: E78.5 Hyperlipidemia, unspecified (principal)
CPT/HCPCS: 36415; 80061

== ENCOUNTER 2022-06-30 15:12 | Outpatient (CLI) | payer MEDICARE, MEDICAID, SELFPAY ==
[2022-06-30 15:19] LABS: Abs Immature Grans 0.05 10^3/uL (0.0-0.06); Absolute Basophil Count 0.04 10^3/uL (0.0-0.2); Absolute Eosinophil Count 0.22 10^3/uL (0.0-0.7); Absolute Lymphocyte Count 1.76 10^3/uL (1.2-3.4); Absolute Monocyte Count 0.57 10^3/uL (0.1-0.8); Absolute Neutrophil Count 6.22 10^3/uL (1.2-6.7); Basophils % 0.5; Eosinophils % 2.5; HCT 41.2 % (36.0-46.0); HGB 14.3 g/dL (11.2-15.7); Immature Grans % 0.6; Lymphocytes % 19.9; MCH 30.5 pg (27.0-33.0); MCHC 34.7 % (32.0-36.0); MCV 88 fL (80-95); MPV 10.3 fL (8.0-11.0); Monocytes % 6.4; Neutrophils % 70.1; Platelet Count 232 10^3/uL (130-400); RBC 4.69 10^6/uL (3.93-5.22); RDW 12.9 % (11.7-14.6); RDW-SD 40.7 fL; WBC 8.86 10^3/uL (4.4-10.8)
[2022-06-30 15:44] LABS: Calculated LDL 133 mg/dL (<100); Cholesterol 212 mg/dL (<200); HDL Cholesterol 58 mg/dL (40-60); Triglyceride 106 mg/dL (<150)
== END 2022-06-30 15:13 | disposition home or self-care (01) ==
LOC: LBO 15:14
PROVIDERS: PCP Nurse Practitioner Family; Visit Provider Nurse Practitioner Family
DX: F32.A Depression, unspecified (principal); R59.9 Enlarged lymph nodes, unspecified; E78.5 Hyperlipidemia, unspecified
CPT/HCPCS: 36415; 80061; 85025

== ENCOUNTER 2022-07-03 00:27 | Outpatient (CLI) | payer MEDICARE, MEDICAID, SELFPAY ==
--- NOTE | 2022-07-03 07:30 | DI.US_ITS ---
Exam(s) US SOFT TISSUE HEAD OR NECK EXAM: US SOFT TISSUE HEAD OR NECK CLINICAL HISTORY: Acute significant swelling of tissue on right side,r59.9. TECHNIQUE: Ultrasound was performed using standard protocol. COMPARISON: No exams were available for comparison FINDINGS: Sonographic assessment utilizing grayscale and color Doppler imaging was performed and targeted to th e area of clinical concern. There does appear to be a small fluid collection in the right neck measuring 1 x 0.8 x 0.7 cm. There are sonographically benign-appearing lymph nodes seen in the neck bilaterally. The largest on the r ight measures 0.9 x 0.2 x 0.6 cm. The largest on the left measures 1.8 x 0.5 x 0.8 cm. IMPRESSION: There does appear to be a small fluid collection in the right neck measuring 1 x 0.8 x 0.7 cm. A sma ll abscess cannot be entirely excluded. A CT scan of the neck with contrast may be obtained for furt her evaluation. DATA REPOSITORY:
== END 2022-07-03 00:47 ==
PROVIDERS: PCP Nurse Practitioner Family; Visit Provider Nurse Practitioner Family
DX: R59.9 Enlarged lymph nodes, unspecified (principal); R22.1 Localized swelling, mass and lump, neck
CPT/HCPCS: 76536

== ENCOUNTER → 2022-07-05 09:56 | Outpatient (BNVA) | payer MEDICARE, MEDICAID, SELFPAY | PROVIDERS: PCP Nurse Practitioner Family; Referring Provider Nurse Practitioner Family; Visit Provider Surgery | DX: L02.11 Cutaneous abscess of neck (principal) | CPT/HCPCS: 10060; 99215 ==

== ENCOUNTER → 2022-07-11 07:53 | Outpatient (BNVA) | payer MEDICARE, SELFPAY | PROVIDERS: PCP Nurse Practitioner Family; Referring Provider Nurse Practitioner Family; Visit Provider Surgery | DX: Z51.89 Encounter for other specified aftercare (principal); L02.11 Cutaneous abscess of neck | CPT/HCPCS: 99212 ==

== ENCOUNTER 2022-08-24 06:01 | Day surgery (SDC) | payer MEDICARE, MEDICAID, SELFPAY ==
--- NOTE | 2022-08-23 21:24 | W.PREOPHP ---
Assessment and Plan Assessment and plan (1) Colon cancer screening: Status: Acute Assessment and plan: We reviewed the risks and benefits of screening colonoscopy as part of routine health maintenance. I think she has a good understanding of the procedure and we can proceed as planned. History of Present Illness History of Present Illness Chief Complaint: Screening colonoscopy Narrative: Jennifer is a 51 year old woman who needs a screening colonoscopy. She denies any melena, hematochezia, unintentional weight loss, or family history of colon or rectal cancers. PFSH All Active Problems Colon cancer screening (Acute) Chronic low back pain (Chronic) total disability. seen at pain clinic in [place] Normal MRI Gastroesophageal reflux disease (Chronic) Idiopathic scoliosis (Acute) Depression (Chronic) mother and son Migraine headache with aura (Chronic) Endometrial hyperplasia with atypia (Chronic) 05/14/2019 D&C endometrial polyp with focal atypical hyperplasia otherwise disordered proliferative endometrium. Rx with Mirena IUD Stress incontinence (Acute) Obesity (BMI 35.0-39.9 without comorbidity) (Acute) IUD (intrauterine device) in place (Acute) 04/2019. Placed at time of D&C as Rx for AUB. Elevated cholesterol (Chronic) 11/2020 Lipid panel: TG 195/Chol 246/JPK563/HDL 49. Hyperlipidemia (Acute) History of endometrial biopsy (Acute) Neck abscess (Acute) Medical History Abnormal uterine bleeding (AUB) History of MRSA infection (06/23/13) Tear of medial collateral ligament of right knee (07/17/19) Surgical History H/O dilation and curettage H/O right knee surgery Unsure what type of surgery, she was 13 History of bilateral tubal ligation Family History Mother , at 63 of bone cancer Melanoma Bone cancer Father Essential hypertension Heart disease Diabetes Sister No problems noted. Sister No problems noted. Brother Heart disease Hyperlipidemia Son , 23 of suicide Grand mal seizure Depression Daughter No problems noted. Maternal Grandfather Cirrhosis of liver Maternal Grandmother COPD (chronic obstructive pulmonary disease) Paternal Grandfather , at 39 Esqueda's lung disease Paternal Grandmother , of old age Stroke Breast cancer Social History Smoking/Tobacco Use Status: Former Tobacco Use tobacco type: cigarettes Quit Date: 07/24/18 Second Hand Exposure: No Smoking risk assessment performed?: Yes Alcohol Intake: never Drug use: Never Substance use type: does not use Caregiver/Support person: No Household members: spouse Housing: house Communication Needs: None Do you need help understanding health information?: Rarely Pets and animals: Yes Pets and animals: dog(s) and horse(s) Sexually active: Yes Do you think of yourself as: straight/heterosexual Current gender identity: female What is your relationship status?: How often do you talk on the phone with friends or family?: three or more times per week How often do you get together with friends or relatives?: once per week How often do you attend hindu or uatsdin services?: decline to answer Do you belong to any clubs or organized social groups?: no Panel score (0-1 are the most socially isolated patients): 2 What type of physical activity do you participate in: walking Duration: < 15 minutes/day Frequency: 1-2 times per week Re/Congregation: No preference Special re needs: No Seatbelt use: always Helmet use: Yes Helmet use: always Drive intox or ride w/intox intermodal owner operator truck driver: No Do you feel safe at home: Yes Do you feel safe in your relationship?: Yes Female Reproductive History Menstrual control method: permanent sterilization and condoms History History 3 Para 2 Hx # Term Pregnancies Multiple births Hx # Pregnancies Ectopic pregnancies AB induced Hx Number of Living Children 1 AB spontaneous Meds Allergies and Home Medications Allergies Allergy/AdvReac Type Severity Reaction Status Date / Time No Known Allergies Allergy Verified 08/24/22 06:21 Home Medications Medication Instructions Recorded Confirmed Type acetaminophen 300 mg-codeine 30 mg 1 tab-cap PO DAILY PRN 04/30/13 08/23/22 History tablet duloxetine 30 mg capsule,delayed 20 mg PO BID #90 tab-caps 04/30/13 08/24/22 History release (Cymbalta) sumatriptan succinate 50 mg tablet 50 mg PO PRN DICKINSON 06/23/13 08/23/22 History (Imitrex) levonorgestrel 21 mcg/24 hours (8 1 insert intrauterine ONCE #1 ea 01/04/21 08/23/22 Rx yrs) 52 mg intrauterine device (Mirena) cranberry 500 mg capsule 500 mg PO DAILY 02/14/22 08/24/22 History cyclobenzaprine 10 mg tablet 10 mg PO HS 02/14/22 08/24/22 History gkxivanq-wvg-prhzw acid 0.4 1 tab PO DAILY 02/14/22 08/24/22 History mg-lycopene 300 mcg-lutein 250 mcg tablet (Centrum Silver) omega-3 fatty acids 1,000 mg 1,000 mg PO DAILY 02/14/22 08/24/22 History capsule red yeast rice 600 mg capsule 600 mg PO BID 02/14/22 08/24/22 History simvastatin 5 mg tablet 5 mg PO QHS #90 tabs 05/17/22 08/23/22 Rx pregabalin 100 mg capsule 100 mg PO TID #1 cap 05/18/22 08/24/22 Rx Exam Const General: cooperative, healthy appearing and comfortable Orientation: awake and oriented x3 Eyes General: appearance normal, both eyes and all related structures Conjunctivae: conjunctivae normal Sclera: sclerae normal Resp Effort & Inspection: normal respiratory effort and able to speak in complete sentences Auscultation: clear to auscultation bilaterally Cardio Jugular venous pressure: no JVD Rate: regular rate Rhythm: regular rhythm Heart Sounds: S1 normal and S2 normal GI Inspection: non-distended Palpation: soft, no guarding, no hernias and nontender Auscultation: normal bowel sounds Skin General skin exam: normal turgor Neuro General: patient alert, patient awake and patient oriented x3 Cognition: normal cognition Extrem Right lower extremity: no edema Left lower extremity: no edema
--- NOTE | 2022-08-23 21:29 | W.PM.DSUDISC ---
Date of service: 08/24/22 Time of Service: 07:55 Discharge Plan Disposition Patient Disposition: Home Condition: Good Discharge Details Reason For Visit: Screening colonoscopy Attending Provider: Juan Ramon Miller Primary Care Provider: Fabrizio Person Home Meds and New Rx's Prescriptions: Continued simvastatin 5 mg tablet 5 mg PO QHS Qty: 90 3RF Patient Comments: pt states she has not started this yet cyclobenzaprine 10 mg tablet 10 mg PO HS omega-3 fatty acids 1,000 mg capsule 1,000 mg PO DAILY red yeast rice 600 mg capsule 600 mg PO BID Rx Instructions: give with meal/snack cranberry 500 mg capsule 500 mg PO DAILY Rx Instructions: administer with meals Centrum Silver 0.4 mg-300 mcg- 250 mcg tablet 1 tab PO DAILY Mirena 20 mcg/24 hours (7 yrs) 52 mg intrauterine device 1 insert intrauterine ONCE Qty: 1 0RF Rx Instructions: as a single dose acetaminophen-codeine 1 EACH tablet 1 tab-cap PO DAILY PRN duloxetine [Cymbalta] 30 MG capsule,delayed release(DR/EC) 20 mg PO BID Qty: 90 sumatriptan succinate [Imitrex] 50 MG tablet 50 mg PO PRN DICKINSON pregabalin 100 mg capsule 100 mg PO TID Qty: 1 0RF Discontinued polyethylene glycol 3350 17 gram/dose powder 238 g PO ONCE Qty: 238 0RF Rx Instructions: take per colonoscopy instructions bisacodyl [Dulcolax (bisacodyl)] 5 mg tablet,delayed release (DR/EC) 5 mg PO ONCE Qty: 4 0RF Rx Instructions: take per colonoscopy instructions Discharge Instructions Instructions: Colorectal Polyps (GEN) Additional Instructions: Jennifer, we were able to complete your colonoscopy today without any difficulty. The quality of your preparation was excellent. I did find 2 small polyps around 25 cm from your anus. I removed both of these completely. I will be in touch when I have the pathology results describing the nature of the polyps. 1. If tolerated, consume a soft, low fiber diet for 1-2 days. 2. Do not drive, drink alcohol, operate machinery, make critical decisions, or do activities that require coordination or balance for 24 hours. 3. Because air was put into your colon during the procedure, expelling air from your rectum (passing gas or farting) is normal. 4. You may not have a bowel movement for 1-3 days because of the colonoscopy prep. This is normal. 5. Go directly to the emergency room if you notice any of the following: Develop chills (warm to touch), or if you have a thermometer and your temperature is above 101 Difficulty breathing or difficultly swallowing Persistent vomiting Severe abdominal pain, other than gas cramps Severe chest pain Black, tarry stools Any bleeding ? exceeding one tablespoon 6. Call your physician if the site where your intravenous was started becomes red, swollen, painful, and warm to touch. 7. Your physician has reviewed your pre-procedure medications. Please continue to take those medications as previously ordered. You will be given specific information/education regarding any changes to your medications before leaving. Activity:: Activity as Tolerated Diet:: As Tolerated Discharge Orders Discharge Orders: Discharge Order (Routine); Ordered 08/23/22 Ordered By: Juan Ramon Miller DS: Diagnosis Discharge Diagnosis (1) Colon cancer screening: Status: Acute Asessment and Plan: I will follow-up on pathology results
--- NOTE | 2022-08-23 21:31 | W.COLOREPORT ---
Date of service: 08/24/22 Time of Service: 07:57 Colonoscopy Report Date of procedure: 08/24/22 Pre-op diagnosis general: Screening colonoscopy Post-op diagnosis procedure note: other (Colon polyps) Procedure: Colonoscopy Surgeon: Juan Ramon Miller Anesthesia Type: General:No Airway Estimated blood loss (mL): 10 Pathology: other (Polyps at 25 cm) Complications: None Disposition: same day Indications: Jennifer is a 51 year olf women here for a screening colonoscopy Prep: Miralax/Dulcolax Procedure Start Time: 07:29 Procedure End Time: 07:47 Retraction Time: 12 Findings: Colon polyps at 25 cm Procedure Description: After the induction of monitored anesthetic care, and with the patient in left lateral decubitus position, I began by performing an external anorectal exam.? Perineum and skin were normal, as was the anal verge.? There was no evidence of external hemorrhoids.? Next, I performed a digital rectal exam.? I did not appreciate any abnormal findings.? Next, I advanced a colonoscope into the rectal vault.? I performed retroflexion.? There was some redundancy of the rectal wall that seems consistent with a rectocele.? I did not see any internal hemorrhoids using insufflation, I then advanced the colonoscope beyond the rectal folds and into the sigmoid colon before advancing towards the cecum.? The quality of the prep was excellent.? The scope was noted to be in the cecum by identification of the ileocecal valve and appendiceal orifice.? I then began withdrawing the colonoscope using repeated irrigation as necessary for full evaluation of the colonic mucosa. Around 25 cm from the anal verge I identified 2 small polyps. They both appeared less than 0.25 cm. ?Both were sessile in character. ?I was able to remove them with a cold forcep polypectomy. ?I examined the sites, and there was minimal bleeding. ?Once this was completed, I continued to withdraw the scope and examine the remainder of the colonic mucosa.?Once the scope was withdrawn to the level of the rectum, great care was taken to examine portions of the rectal folds.? Finally, the scope was withdrawn and the patient was brought to the same-day surgery recovery unit as the anesthetic wore off. ?The findings and instructions were shared with the patient prior to discharge.
[2022-08-24 06:06] VITALS: BP 115/83; PULSE 87; RESP 16; TEMP 36.7; O2SAT 98
[2022-08-24] MEDS: Lactated Ringers 1,000 ML 80 ML IV (06:44)
--- NOTE | 2022-08-24 06:57 | W.ANESPRE ---
General Info Date of Service Date Performed: 08/24/22 Height: 5 ft 4 in Weight: 81.1 kg Body Mass Index (BMI): 30.7 Surgical Procedure: Operation Date: 08/24/22 07:35 Proposed Procedure Side Surgeon terry Miller MD Meds Allergies and Home Medications Allergies Allergy/AdvReac Type Severity Reaction Status Date / Time No Known Allergies Allergy Verified 08/24/22 06:21 Home Medication Medication Instructions Recorded acetaminophen 300 mg-codeine 30 mg 1 tab-cap PO DAILY PRN 04/30/13 tablet duloxetine 30 mg capsule,delayed 20 mg PO BID #90 tab-caps 04/30/13 release (Cymbalta) sumatriptan succinate 50 mg tablet 50 mg PO PRN DICKINSON 06/23/13 (Imitrex) levonorgestrel 21 mcg/24 hours (8 1 insert intrauterine ONCE #1 ea 01/04/21 yrs) 52 mg intrauterine device (Mirena) cranberry 500 mg capsule 500 mg PO DAILY 02/14/22 cyclobenzaprine 10 mg tablet 10 mg PO HS 02/14/22 vtzhcbnn-fuy-qqeni acid 0.4 1 tab PO DAILY 02/14/22 mg-lycopene 300 mcg-lutein 250 mcg tablet (Centrum Silver) omega-3 fatty acids 1,000 mg 1,000 mg PO DAILY 02/14/22 capsule red yeast rice 600 mg capsule 600 mg PO BID 02/14/22 simvastatin 5 mg tablet 5 mg PO QHS #90 tabs 05/17/22 pregabalin 100 mg capsule 100 mg PO TID #1 cap 05/18/22 Current Visit Medications: Current Medications Generic Name Dose Route Start Last Admin Trade Name Victoria PRN Reason Stop Dose Admin Hyoscyamine Sulfate 0.125 mg 08/23/22 21:32 Hyoscyamine 0.125 Mg Sl/Oral/Chew SL 09/22/22 21:31 DIRECTED PRN Ringer's Solution 1,000 mls @ 80 mls/hr 08/24/22 06:00 08/24/22 06:44 IV 09/22/22 23:59 80 mls/hr INFUSION ENRIQUE Administration IV Miscellaneous Supplies 1 each 08/24/22 06:00 Iv Access IV 09/22/22 23:59 DIRECTED ENRIQUE Ondansetron HCl 4 mg 08/23/22 21:32 Ondansetron 4 Mg/2 Ml Vial IVP 09/22/22 21:31 Q4H PRN PRN Nausea / Vomiting Sodium Chloride 0 ml 08/24/22 06:00 Normal Saline Flush 10 Ml Syr IV 09/22/22 23:59 PRN PRN Sodium Chloride 0 ml 08/24/22 06:00 Normal Saline 10 Ml Vial IJ 09/22/22 23:59 DIRECTED PRN Sterile Water 0 ml 08/24/22 06:00 Water,Injection,Sterile 10 Ml Vial IJ 09/22/22 23:59 DIRECTED PRN PFSH Active Problems Active Problems: Problem Status Onset Code Colon cancer screening Z12.11 Chronic low back pain M54.5, G89.29 Gastroesophageal reflux disease K21.9 Idiopathic scoliosis M41.20 Depression F32.9 Migraine headache with aura G43.109 Endometrial hyperplasia with atypia N85.02 Right ACL tear 07/17/19 S83.511A Lateral meniscus tear 07/17/19 S83.289A Stress incontinence N39.3 Obesity (BMI 35.0-39.9 without comorbidity) E66.9 IUD (intrauterine device) in place Z97.5 Elevated cholesterol E78.00 Hyperlipidemia E78.5 History of endometrial biopsy Z92.89 Neck abscess L02.11 Medical History Medical History Abnormal uterine bleeding (AUB) History of MRSA infection (06/23/13) Tear of medial collateral ligament of right knee (07/17/19) Medical History Comments:: pt was unable to provide urine sample for test 08/24/22-mkb Surgical History Surgical History H/O dilation and curettage H/O right knee surgery Unsure what type of surgery, she was 13 History of bilateral tubal ligation Tobacco Smoking/Tobacco Use Status: Former Tobacco Use Passive smoking exposure: No Second hand exposure: No Alcohol Alcohol Intake: never Substance Use Substance use: Never Substance use type: does not use Prental History History 3 Para 2 Hx # Term Pregnancies Multiple births Hx # Pregnancies Ectopic pregnancies AB induced Hx Number of Living Children 1 AB spontaneous Vital Signs and Lab Results Vital Signs Most Recent Vital Signs in EMR: Most Recent Vital Signs Temp Pulse Resp BP Pulse Ox 36.7 C 87 16 115/83 98 08/24/22 06:06 08/24/22 06:06 08/24/22 06:06 08/24/22 06:06 08/24/22 06:06 Lab Results Blood Type / Crossmatch: No Data to Display Complete Blood Count: No Data to Display Complete Metabolic Panel: No Data to Display Liver Function Panel: No Data to Display Coagulation Panel: No Data to Display Cardiac Panel: No Data to Display Arterial Blood Gas: No Data to Display Venous Blood Gas: No Data to Display Pancreas Panel: No Data to Display Thyroid Panel: No Data to Display Infectious Disease: No Data to Display Blood Cultures: No Data to Display Toxicology Panel: No Data to Display Panel: No Data to Display Anesthesia Assessment and Plan Anesthesia History Personal History: PONV Family History: No Family History of Anesthesia Complications Exercise Tolerance Exercise Tolerance: Metabolic Equivalents>4 Pertinent Negatives Pertinent Negatives: No Symptoms of GERD, No Major Cardiovascular Symptoms or Complaints and No Major Pulmonary Symptoms or Complaints Cardiac & Pulmonary Exam Cardiac Exam: Normal S1/S2 Heart Sounds Pulmonary Exam: Clear Bilateral Breath Sounds Implantable Cardiac Device Does patient have a Pacemaker or an ICD?: No Airway Exam Known Difficult Airway: No Mallampati Class: 2 Mouth Opening: Normal (> 3cm) Thyromental Distance: Greater than 3 cm Neck Range of Motion: Full ROM Neck Circumference: Normal Teeth Condition: Normal Dentition ASA Classification ASA Score: ASA 2 Emergency Case?: No NPO Status NPO Status: NPO Clears >2 hours, Solids >8 hours Status Status: Pt. refuses testing, she was counseled on anesthesia risks (unable to void, history of tubal and IUD in place) Anesthesia Plan Resuscitation Status: Full Code Anesthesia Technique: General Anesthesia Airway Planned: Natural Airway Monitors Used: Standard Monitors
[2022-08-24 07:00] VITALS: BMI 30.7
--- NOTE | 2022-08-24 07:40 | BOWEL_PTH ---
PATIENT: Jennifer Rowland LOC: [facility] U#:[id number] AGE/SX: 51/F ROOM: RE08/24/[address]: Juan Ramon Miller MD : 1970 BED: DIS: 08/24/2022 SPEC #: [id number] RECD: 08/24/22 12:44 STATUS: RAFAEL RE #: [id number] JOSE FRANCISCO: 08/24/22 07:[address]: Juan Ramon Miller DEPT: Surgical Specimen RECD BY: Nayeli Bauer ENTERED: 08/24/22 12:44 SP TYPE: Bowel OTHR DR: Fabrizio Person, SIERRA Tissues: 1 - BIOPSY BOWEL Procedures: GROSS AND MICRO LEVEL 4 Comments: [id number]
[2022-08-24 07:55] VITALS: BP 134/81; PULSE 80; RESP 16; TEMP 36.4; O2SAT 100
--- NOTE | 2022-08-24 08:02 | W.ANESPOSTOP ---
Postoperative Evaluation Date, Time and Location Date Performed: 08/24/22 Time Performed: 08:02 Patient Location: Day Surgery Unit Vital Signs Most Recent Imported Vital Signs: Most Recent Vital Signs Temp Pulse Resp BP Pulse Ox 36.7 C 87 16 115/83 98 08/24/22 06:06 08/24/22 06:06 08/24/22 06:06 08/24/22 06:06 08/24/22 06:06 Pain Score Most Recent Pain Score: Most Recent Pain Score Pain Level 0 08/24/22 06:06 Assessment Mental Status: Arousable with meaningful communication Airway and Respiratory Function: Patent airway with normal (patient baseline) respiratory exam Cardiovascular Function: Hemodynamically Stable Hydration Status: Adequately Hydrated Nausea & Vomiting: No Nausea or Vomiting Pain: Pt. Denies Any Pain Peripheral Nerve Block: Patient did not receive a nerve block
[2022-08-24 08:18] VITALS: BP 107/71; PULSE 82; RESP 18; TEMP 36.6; O2SAT 99
== END 2022-08-24 06:02 | disposition home or self-care (01) ==
PROVIDERS: PCP Nurse Practitioner Family; Visit Provider Surgery
PROC: 0DJD8ZZ Inspection of Lower Intestinal Tract, Via Natural or Artificial Opening Endoscopic (ICD-10-PCS; CPT 45378; principal; 2022-08-24 07:30)
DX: Z12.11 Encounter for screening for malignant neoplasm of colon (principal); K63.5 Polyp of colon
CPT/HCPCS: 45380; 81025; 88305; J2001

== ENCOUNTER 2023-02-01 12:09 | Outpatient (REF) | payer MEDICARE, SELFPAY ==
[2023-02-01 13:43] LABS: Bilirubin Negative (Negative); Blood Negative (Negative); Clarity Clear (Clear); Glucose Negative (Negative); Ketones Negative (Negative); Leukocyte Esterase Negative (Negative); Nitrite Negative (Negative); Specific Gravity 1.015 (1.005-1.025); Urobilinogen 0.2 mg/dL (Up to 0.2)
== END 2023-02-01 12:10 | disposition home or self-care (01) ==
LOC: LBN 12:09
PROVIDERS: PCP Nurse Practitioner Family; Visit Provider Physician Assistant
DX: R30.0 Dysuria (principal); R39.9 Unspecified symptoms and signs involving the genitourinary system
CPT/HCPCS: 81003; 87480; 87510; 87660

== ENCOUNTER → 2023-06-06 03:13 | Outpatient (CLI) | payer MEDICARE, SELFPAY ==
--- NOTE | 2023-06-06 08:30 | DI.MAMMO_ITS ---
Exam(s) MAMMO SCREENING EXAM: MAMMO SCREENING CLINICAL HISTORY: screening,z12.39 TECHNIQUE: Bilateral full field digital CC and MLO mammographic images were obtained with 3D tomosyn thesis and utilizing computer aided detection (CAD). COMPARISON: Available for comparison. FINDINGS: Masses/Architectural Distortion: None seen. Microcalcifications: No suspicious pleomorphic-type are seen. Skin Thickening/Nipple Retraction: None. IMPRESSION: 1. No significant interval change with no specific features of malignancy noted. 2. Unless there is more urgent need, screening mammography is recommended, as per [employer] guidelines. BI-RADS Category 1 - Negative Breast Density - Category B - Scattered areas of fibroglandular density Breast density category C or D implies that the patient has dense breast tissue. Dense breast tissue is very common and is not abnormal but dense breast tissue can make it harder to find cancer on a ma mmogram. Also, dense breast tissue may increase their breast cancer risk. This information about the result of the mammogram report was provided to the patient to raise their awareness. Use this report when you speak with the patient about their risks for breast cancer, which includes their family hist ory. At that time, you may recommend for more screening tests (Ultrasound or MRI) as they might be us eful based on their risk. A negative radiographic report should not delay biopsy if a dominant or clinically suspicious mass is present. Up to ten percent of cancers are not identified on mammography. A negative report may reinforce clinical impression. Adenosis and dense breasts may obscure an underlying neoplasm. False positive reports average 6 to 10%. Patient will receive a letter notifying them of these results.
== END ==
PROVIDERS: PCP Nurse Practitioner Family; Visit Provider Nurse Practitioner Family
DX: Z12.31 Encounter for screening mammogram for malignant neoplasm of breast (principal)
CPT/HCPCS: 77063; 77067

== ENCOUNTER → 2023-06-25 04:17 | Outpatient (CLI) | payer MEDICARE, SELFPAY ==
--- NOTE | 2023-06-25 08:00 | DI.US_ITS ---
Exam(s) US PELVIS TRANSVAGINAL EXAM: US PELVIS TRANSVAGINAL CLINICAL HISTORY: CHECK STRIPE,H/O POSTMENOPAUSAL BLEEDING,IUD IN PLACE,N85.02. TECHNIQUE: Transabdominal and transvaginal pelvic ultrasound was performed using standard protocol. COMPARISON: US US PELVIS TRANSVAGINAL from 04/23/2019 FINDINGS: UTERUS: Position: Retroverted Size: 6.5 long by 3.5 AP by 4.9 transverse cm Endometrium: 0.2 cm (series 1, image 950). Normal for patient's menstrual status. There is an IUD wh ich is in good position in the fundus. Myometrium: There is a 1.4 x 1.2 x 1.5 cm fundal myometrial fibroid. Cervix: Unremarkable. OVARIES: Right: 2.0 x 1.8 x 1.6 cm Cyst or mass: No suspicious cystic or solid masses. Left: 2.5 x 1.1 x 1.1 cm Cyst or mass: No suspicious cystic or solid masses. DOPPLER: Color: Symmetric and uniform flow to both ovaries. CUL-DE-SAC: Free fluid: None. Other: None. IMPRESSION: 1. Normal-appearing uterus with endometrial stripe within normal limits. 2. There is an IUD which is in good position. 3. Unremarkable bilateral ovaries. DATA REPOSITORY:
== END ==
PROVIDERS: PCP Nurse Practitioner Family; Visit Provider Obstetrics & Gynecology Gynecology
DX: N85.02 Endometrial intraepithelial neoplasia [EIN] (principal); N95.0 Postmenopausal bleeding; D25.9 Leiomyoma of uterus, unspecified; Z97.5 Presence of (intrauterine) contraceptive device
CPT/HCPCS: 76830; 76856

== ENCOUNTER 2024-06-09 01:55 | Outpatient (CLI) | payer MEDICARE, SELFPAY ==
[2024-06-09 11:42] LABS: Hemoglobin A1C 5.2 % (<5.7)
[2024-06-09 11:50] LABS: Calculated LDL 161 mg/dL (<100); Cholesterol 256 mg/dL (<200); HDL Cholesterol 77 mg/dL (>or=50); Triglyceride 93 mg/dL (<150)
== END 2024-06-09 01:56 | disposition home or self-care (01) ==
PROVIDERS: PCP Nurse Practitioner Family; Visit Provider Nurse Practitioner Family
DX: Z13.6 Encounter for screening for cardiovascular disorders (principal); Z13.1 Encounter for screening for diabetes mellitus
CPT/HCPCS: 36415; 80061; 83036

== ENCOUNTER 2025-03-25 02:34 | Outpatient (CLI) | payer MEDICARE, SELFPAY ==
[2025-03-25 08:56] LABS: Cholesterol 247 mg/dL (<200); HDL Cholesterol 70 mg/dL (>or=50)
== END 2025-03-25 02:35 | disposition home or self-care (01) ==
LOC: LBO 02:34
PROVIDERS: PCP Nurse Practitioner Family; Referring Provider Nurse Practitioner Family; Visit Provider Nurse Practitioner Family
DX: E78.2 Mixed hyperlipidemia (principal); E78.00 Pure hypercholesterolemia, unspecified
CPT/HCPCS: 36415; 80061